=== PATIENT | male | born 1960 | race Caucasian/White ===

== ENCOUNTER 2018-01-07 10:02 | Emergency (ER) | payer OTHER ==
--- NOTE | 2018-01-07 10:18 | PDOC ---
History of Present Illness - General Chief Complaint: Lightheaded Stated Complaint: WEAKNESS Time Seen by Provider: 01/07/18 10:17 - History of Present Illness Initial Comments: 01/07/18 10:38 The patient is a 57 year old male with a history of HTN, HLD who presents for evaluation of lightheadedness, headache, and generalized weakness. The patient reports a history of headaches during intercourse with certain positions. He states that recently, his headaches have been persisting and lasting up to 1 week at a time. He is currently being worked up by Dr. Hirsch his neurologist and has an MRI scheduled in 4 days. He states that he was placed on a medication for migraines by Dr. Hirsch 1 week ago, and since then has been experiencing continued headaches and worsening lightheadedness and generalized weakness prompting his presentation to the ED for evaluation. He otherwise denies fevers, chills, SOB, chest pain, abdominal pain, nausea, vomiting, numbness, weakness, or changes with urination or bowel movements. Past History - Past Medical History Allergies/Adverse Reactions: Allergies Allergy/AdvReac Type Severity Reaction Status Date / Time No Known Allergies Allergy Verified 01/07/18 10:14 Home Medications: Ambulatory Orders Atorvastatin Ca [Lipitor] 20 mg PO DAILY 03/17/17 Losartan Potassium 25 mg PO DAILY 03/17/17 Topiramate [Topamax] 50 mg PO DAILY 01/07/18 Zolpidem Tartrate [Ambien] 10 mg PO HS 01/07/18 HTN: Yes Hypercholesterolemia: Yes - Suicide/Smoking/Psychosocial Hx Smoking History: Never smoked Hx Alcohol Use: Yes (SOCIAL) Drug/Substance Use Hx: No Substance Use Type: None Review of Systems - Review of Systems Comments:: 01/07/18 10:43 Constitutional: Fatigue. No fevers, chills, malaise HEENT: No Rhinorrhea, nasal congestion, visual changes Cardiovascular: Lightheadedness. No chest pain, syncope, palpitations, Respiratory: No Cough, SOB, Hemoptysis, Gastrointestinal: No Abdominal pain, Nausea, Vomiting, Constipation, Diarrhea, Melena Genitourinary: No Dysuria, Frequency, Urgency, Hesitancy, Hematuria, Flank pain Musculoskeletal: No Myalgia, arthralgia Skin: No rashes, itching, bruising, pallor Neurologic: Headache. No Dizziness, Numbness, Weakness, or Tingling Psychiatric: No Hallucinations. No SI or HI *Physical Exam - Physical Exam Comments: 01/07/18 10:45 General Appearance: Nourished. No Apparent Distress HEENT: EOMI, SOFIE. No Pharyngeal Erythema, Tonsillar Exudate, Tonsillar Erythema Neck: No Cervical Lymphadenopathy Respiratory/Chest: Lungs Clear, Normal Breath Sounds. No Crackles, Rales, Rhonchi, Wheezing Cardiovascular: Regular Rhythm, Regular Rate. No Murmur, Gallops, Rubs Gastrointestinal/Abdominal: Normal Bowel Sounds, Soft. No Guarding, Rebound, Tenderness Musculoskeletal: No CVA Tenderness Extremity: Normal Capillary Refill Integumentary: Normal Color, Dry, Warm Neurologic: dairy farmworker II-XII NML intact, Fully Oriented, Alert, Normal Mood/Affect, Normal Response, Motor Strength 5/5. Normal Finger to Nose and Heel to Kay ED Treatment Course - LABORATORY CBC & Chemistry Diagram: 01/07/18 10:50 01/07/18 10:50 Medical Decision Making - Medical Decision Making 01/07/18 10:45 The patient is a 57 year old male with a history of HTN, HLD who presents for evaluation of lightheadedness, headache, and generalized weakness. Differential includes but is not limited to: ACS, Dehydration, Intracranial process, Arrhythmia, infectious, metabolic derangement. Given the patient's history we will obtain a cbc, cmp, troponin, head ct, ekg to evaluate further for any serious etiologies. We will treat with iv fluids here in the ED and continue to monitor and reassess. 01/07/18 13:12 CBC, cmp, troponin were unremarkable. Head CT was unremarkable as read by our radiologist. We discussed the case with Dr. Hirsch who has been made aware of the case and requests that the patient stop his new medication and follow up in the office after his MRI in 4 days. We are comfortable discharging the patient home at this time with neurology follow up. We discussed the results, plan, and strict return precautions with the patient who voiced understanding and is agreeable with the plan. *DC/Admit/Observation/Transfer Diagnosis at time of Disposition: Headache Qualifiers: Headache type: unspecified Headache chronicity pattern: unspecified pattern Intractability: not intractable Qualified Code(s): R51 - Headache - Discharge Dispostion Disposition: HOME Condition at time of disposition: Good Admit: No - Referrals Referrals: Frances Love MD [Primary Care Provider] - Usama Finn MD [Staff Physician] - - Patient Instructions Printed Discharge Instructions: DI for Headache Additional Instructions: Please return to the ER if you experience concerning or worsening symptoms including worsening headache, weakness in your arms or legs, vomiting, or numbness. Your lab results and CT scan were normal here in the ER. Please stop taking the medication that was prescribed to you by Dr. Finn per his request. Please keep your MRI appointment on . Please call to schedule a follow up appointment with Dr. Finn your Neurologist within 2-3 days to discuss your ER visit and further management of your symptoms. - Post Discharge Activity
[2018-01-07 10:19] VITALS: BMI 24.3
[2018-01-07] MEDS ORDERED: SODIUM CHLORIDE 1,000 ML IV STA (10:34)
[2018-01-07 10:56] LABS: BASO % 0.7 % (0-2.0); EOS % 4.7 % (0-4.5); HEMATOCRIT 44.1 % (35.4-49); HEMOGLOBIN 15.2 GM/dL (11.7-16.9); MCH 29.7 pg (25.7-33.7); MCHC 34.4 g/dl (32.0-35.9); MEAN CELL VOLUME 86.4 fl (80-96); MEAN PLT VOLUME 8.2 fl (7.5-11.1); MONO % 8.8 % (3.8-10.2); NEUT % 56.8 % (42.8-82.8); PLATELET COUNT 276 K/MM3 (134-434); RDW 13.6 % (11.9-15.9); WHITE BLOOD COUNT 6.6 K/mm3 (4.0-10.0)
[2018-01-07 11:20] LABS: ALBUMIN 4.2 g/dl (3.4-5.0); ANION GAP 8 (8-16); BILIRUBIN,TOTAL 0.6 mg/dL (0.2-1.0); BLOOD UREA NITROGEN 22 mg/dL (7-18); CALCIUM 8.7 mg/dL (8.5-10.1); CHLORIDE 109 mmol/L (98-107); CO2 24 mmol/L (21-32); GLUCOSE,RANDOM 89 mg/dL (74-106); POTASSIUM 4.5 mmol/L (3.5-5.1); SGOT/AST 24 U/L (15-37); SGPT/ALT 34 U/L (12-78); SODIUM 141 mmol/L (136-145); TOT PROT 6.9 g/dl (6.4-8.2)
[2018-01-07 11:22] LABS: ALK PHOS 105 U/L (45-117)
[2018-01-07] MEDS ORDERED: ACETAMINOPHEN 1000 MG/100 ML VIAL (NON FORMULARY) IVPB ONE (11:59)
[2018-01-07] MEDS ORDERED: METOCLOPRAMIDE HCL INJECTION 10 MG/2 ML VIAL IVPUSH ONE (11:59)
--- NOTE | 2018-01-07 12:14 | PDOC ---
Attending Attestation - Resident Resident Name: David Driscoll - HPI HPI: 01/07/18 12:14 Mr Lewis is a 57 yo M with a history of HTN, HLD who presents for evaluation of lightheadedness, headache, and generalized weakness. The patient has been seen by Neurology - Dr Finn Was started on some medication on sunday which he states did not help but rather worsened his headache He has noticed that his headaches have been persistent and lasting for several days at at time He notes headaches during intercourse with certain positions. MRI scheduled for 3 days from now. while in [employer] today, he noted that he felt lightheaded He denies chest pain, he denies palpitations No syncope - Physicial Exam PE: 01/07/18 12:18 On examination: RRR CTA B/L No abd tenderness No focal weakness or numbness The patient is awake, alert, oriented x3. Gross motor and sensory exam is found to be intact. Sensation of distal lower extremities intact. 5/5 muscle strength of the lower extremities. DTRs, Achilles, patellar 1-2+ and equal bilaterally. - Medical Decision Making 01/07/18 12:19 57 yo m presenting to the ER with a complaint of headache, lightheadedness, pre syncope no fevers or chills Symptoms seem to be chronic and intermittently worsening unlikely to be related to SAH or sentinel bleed unlikely to be related to meningitis (no fevers, no nuchal rigiditiy) unlikely to be related to mass will do CT any how Will re assess CT not acute Call placed to Neuro Pt can follow up with Dr Finn in the office MRI in 2 days Hold medication already prescribed (eval for symptom improvement) Clinical Impression: headache, initial presentation
[2018-01-07] MEDS ORDERED: METOCLOPRAMIDE HCL INJECTION 10 MG/2 ML VIAL ONE (12:27)
[2018-01-07] MEDS ORDERED: ACETAMINOPHEN INJECTION 100 ML IVPB ONE (12:28)
[2018-01-07 13:43] VITALS: BP 101/58; PULSE 60; TEMP 97.5
--- NOTE | 2018-01-07 15:08 | EKG ---
Test Reason : Blood Pressure : / mmHG Vent. Rate : 057 BPM Atrial Rate : 057 BPM P-R Int : 170 ms QRS Dur : 092 ms QT Int : 400 ms P-R-T Axes : 069 038 027 degrees QTc Int : 389 ms SINUS BRADYCARDIA EARLY REPOLARIZATION OTHERWISE NORMAL ECG WHEN COMPARED WITH ECG OF 02-APR-2005 00:08, NO SIGNIFICANT CHANGE WAS FOUND Confirmed by SABAS GREEN MD ([id number]) on 01/07/2018 3:08:12 PM Referred By: Confirmed By:SABAS GREEN MD
== END 2018-01-07 13:52 | disposition home or self-care (01) ==
LOC: JER 10:02
PROC: 3E0337Z Introduction of Electrolytic and Water Balance Substance into Peripheral Vein, Percutaneous Approach (ICD-10-PCS; principal; 2018-01-07)
PROC: 3E033NZ Introduction of Analgesics, Hypnotics, Sedatives into Peripheral Vein, Percutaneous Approach (ICD-10-PCS; 2018-01-07)
PROC: 3E033GC Introduction of Other Therapeutic Substance into Peripheral Vein, Percutaneous Approach (ICD-10-PCS; 2018-01-07)
DX: R51 Headache (principal); I10 Essential (primary) hypertension; E78.00 Pure hypercholesterolemia, unspecified
CPT/HCPCS: 36415; 70450-TC; 80053; 82550; 82553; 84443; 84484; 85025; 93005; 93010; 96361; 96374; 96375; 99283-25; J0131; J7030

== ENCOUNTER 2018-11-10 19:43 | Emergency (ER) | payer OTHER ==
[2018-11-10 19:46] VITALS: BMI 25.0
--- NOTE | 2018-11-10 19:47 | PDOC ---
History of Present Illness - General Chief Complaint: Weakness Stated Complaint: WEAKNESS Time Seen by Provider: 11/10/18 19:46 History Source: Patient Exam Limitations: No Limitations - History of Present Illness Initial Comments: 11/10/18 20:08 58 year old male with PMH HTN, HLD on statin, neck mass presented to ED for generalized weakness, cough and headache starting today. Pt stated he forgot to take his Losartan 25 mg today, developed a headache, took his blood pressure which was 210/100, took his medication, then rechecked his blood pressure which was 190/94. He stated he usually cannot have sexual intercourse with him on top of his because it aggravates his neck pain from his neck mass, and that a couple of days ago he had sexual intercourse with his on top, which exacerbated his neck pain or sore throat. He also complained of a week of palpitations last week, which has resolved. He stated he started coughing today , and couple up a couple drops of blood. He also complained of body aches. He denied chest pain, shortness of breath, abdominal pain, nausea, vomiting, diarrhea, lower extremity swelling, dysuria. Allergies: NKDA Past History - Past Medical History Allergies/Adverse Reactions: Allergies Allergy/AdvReac Type Severity Reaction Status Date / Time No Known Allergies Allergy Verified 11/10/18 19:46 Home Medications: Ambulatory Orders Atorvastatin Ca [Lipitor] 20 mg PO DAILY 03/17/17 Losartan Potassium 25 mg PO DAILY 03/17/17 COPD: No HTN: Yes Hypercholesterolemia: Yes - Suicide/Smoking/Psychosocial Hx Smoking History: Never smoked Have you smoked in the past 12 months: No Hx Alcohol Use: Yes (SOCIAL) Drug/Substance Use Hx: No Substance Use Type: None Review of Systems - Review of Systems Able to Perform ROS?: Yes Comments:: 11/10/18 20:12 General: admitted to chills, generalized weakness. HEENT: admitted to sore throat. denied rhinorrhea, ear pain. Heart: admitted to palpitations. denied chest pain, syncope, diaphoresis. Respiratory: admitted to cough, hemoptysis. denied shortness of breath, sputum production. Abdomen: denied abdominal pain, nausea, vomiting, diarrhea, constipation, blood in stool. : denied dysuria, increased urinary frequency, hematuria, urinary incontinence , flank pain. Back: denied back pain. Musculoskeletal: admitted to body aches. denied joint pain, joint swelling. Neurological: admitted to headache. denied dizziness, numbness, tingling, weakness. Skin: denied rash, laceration, abrasion. *Physical Exam - Vital Signs Last Vital Signs Temp Pulse Resp BP Pulse Ox 98.1 F 71 18 158/90 100 11/10/18 19:44 11/10/18 19:44 11/10/18 19:44 11/10/18 19:44 11/10/18 19:44 - Physical Exam Comments: 11/10/18 20:14 Constitutional: Well-nourished, Well-developed, appearing stated age. HEENT: head is normocephalic, atraumatic. EOMI. PERRLA. TM no erythema or bulging bilaterally. posterior pharynx no erythema. no tonsillar swelling, no tonsillar exudates bilaterally. Neck: supple. Full ROM. tenderness to palpation of right paraspinal c-spine area. Heart: regular rhythm. no murmurs, rubs or gallops. Lungs: clear to auscultation bilaterally. no crackles, rhonchi or wheezing. no stridor. Abdomen: soft, nontender. normal bowel sounds. no rebound, guarding, masses. Extremities: Peripheral pulses intact. No lower extremity edema. Neurological: CN 2-12 grossly intact. Moves all four extremities. Psych: awake, alert, oriented x3. Follows commands. Answers questions appropriately. Moderate Sedation - Procedure Monitoring Vital Signs: Procedure Monitoring Vital Signs Temperature 98.1 F 11/10/18 19:44 Pulse Rate 71 11/10/18 19:44 Respiratory Rate 18 11/10/18 19:44 Blood Pressure 158/90 11/10/18 19:44 O2 Sat by Pulse Oximetry (%) 100 11/10/18 19:44 Heart Score/ECG Review - History History: Slightly suspicious - Electrocardiogram EKG: Non specific repolarization disturbance - Age Age: 45-65 - Risk Factors Risk Factors Heart Score: Yes Hx Hypercholesterolemia, Yes Hx Hypertension Based on the list above the patient has:: 1-2 risk factors - Troponin Troponin: </= normal limit - Score Heart Score - Total: 3 ED Treatment Course - LABORATORY CBC & Chemistry Diagram: 11/10/18 20:02 11/10/18 20:02 Medical Decision Making - Medical Decision Making 11/10/18 20:15 58 year old male with above PMH presented to ED for multiple complaints as above. Initial Vital Signs Temp Pulse Resp BP Pulse Ox 98.1 F 71 18 158/90 100 11/10/18 19:44 11/10/18 19:44 11/10/18 19:44 11/10/18 19:44 11/10/18 19:44 Afebrile. No tachycardia. No tachypnea. Mild hypertension. No hypoxia on room air. Labs ordered: CBC, CMP, troponin, UA/UC, influenza testing Imaging ordered: CXR Medications ordered: normal saline bolus 1000 cc, toradol 30 mg IV EKG performed at 11/10/18: rate 68, regular rhythm, normal axis, normal intervals, early repolarization, 1 PVC. early repolarization similar to prior . - Pt informed of PVC and need to follow up with PCP 11/10/18 20:27 CBC WBC 10.1 K/mm3 (4.0-10.0) H 11/10/18 20:02 RBC 4.93 M/mm3 (4.00-5.60) 11/10/18 20:02 Hgb 15.0 GM/dL (11.7-16.9) 11/10/18 20:02 Hct 42.4 % (35.4-49) 11/10/18 20:02 MCV 85.9 fl (80-96) 11/10/18 20:02 MCH 30.5 pg (25.7-33.7) 11/10/18 20:02 MCHC 35.5 g/dl (32.0-35.9) 11/10/18 20:02 RDW 12.9 % (11.9-15.9) 11/10/18 20:02 Plt Count 278 K/MM3 (134-434) 11/10/18 20:02 MPV 7.9 fl (7.5-11.1) 11/10/18 20:02 Absolute Neuts (auto) 6.6 K/mm3 (1.5-8.0) 11/10/18 20:02 Neutrophils % 65.1 % (42.8-82.8) 11/10/18 20:02 Lymphocytes % 21.9 % (8-40) D 11/10/18 20:02 Monocytes % 8.5 % (3.8-10.2) 11/10/18 20:02 Eosinophils % 3.4 % (0-4.5) 11/10/18 20:02 Basophils % 1.1 % (0-2.0) 11/10/18 20:02 Nucleated RBC % 0 % (0-0) 11/10/18 20:02 No leukocytosis. No left shift. No anemia. 11/10/18 20:34 Influenza A&B testing negative. 11/10/18 20:38 CMP Sodium 140 mmol/L (136-145) 11/10/18 20:02 Potassium 3.9 mmol/L (3.5-5.1) 11/10/18 20:02 Chloride 106 mmol/L (98-107) 11/10/18 20:02 Carbon Dioxide 24 mmol/L (21-32) 11/10/18 20:02 Anion Gap 9 MMOL/L (8-16) 11/10/18 20:02 BUN 19 mg/dL (7-18) H 11/10/18 20:02 Creatinine 0.8 mg/dL (0.55-1.3) 11/10/18 20:02 Creat Clearance w eGFR > 60 (>60) 11/10/18 20:02 Random Glucose 91 mg/dL (74-106) 11/10/18 20:02 Calcium 7.9 mg/dL (8.5-10.1) L 11/10/18 20:02 Total Bilirubin 0.4 mg/dL (0.2-1) 11/10/18 20:02 AST 20 U/L (15-37) 11/10/18 20:02 ALT 39 U/L (13-61) 11/10/18 20:02 Alkaline Phosphatase 110 U/L (45-117) 11/10/18 20:02 Troponin I < 0.02 ng/ml (0.00-0.05) 11/10/18 20:02 B-Natriuretic Peptide 23.6 pg/ml (5-125) 11/10/18 20:02 Total Protein 6.4 g/dl (6.4-8.2) 11/10/18 20:02 Albumin 3.9 g/dl (3.4-5.0) 11/10/18 20:02 No electrolyte abnormalities. No ANITA. No transaminitis. Normal troponin. Normal BNP. Urine Test Results Urine Color Straw 11/10/18 20:18 Urine Appearance Clear 11/10/18 20:18 Urine pH 6.0 (5.0-8.0) 11/10/18 20:18 Ur Specific [place] 1.011 (1.010-1.035) 11/10/18 20:18 Urine Protein Negative (NEGATIVE) 11/10/18 20:18 Urine Glucose (UA) Negative (NEGATIVE) 11/10/18 20:18 Urine Ketones Negative (NEGATIVE) 11/10/18 20:18 Urine Blood Negative (NEGATIVE) 11/10/18 20:18 Urine Nitrite Negative (NEGATIVE) 11/10/18 20:18 Urine Bilirubin Negative (<2.0 mg/dL) 11/10/18 20:18 Ur Leukocyte Esterase Negative (NEGATIVE) 11/10/18 20:18 No blood in urine. No evidence of UTI. 11/10/18 20:50 CXR my interpretation: sharp costophrenic angles. no infiltrate. no cardiomegaly. no pulmonary vascular congestion. - Pending official report 11/10/18 21:25 CT Head report: no intracranial hemorrhages, no intracranial mass, no evidence of acute or chronic ischemic lesion at this time. Pt informed of results and given copy of CT head report and EKG. Pt informed to follow up with PCP. Pt given pamphlet for [facility] clinic. Pt stated he may change his PCP to the clinic system. Pt discharged. *DC/Admit/Observation/Transfer Diagnosis at time of Disposition: Generalized weakness, Body aches - Discharge Dispostion Condition at time of disposition: Stable Decision to Admit order: No - Referrals - Patient Instructions Printed Discharge Instructions: DI for High Blood Pressure, How to Monitor Your Blood Pressure at Home Additional Instructions: Your lab work was normal. Your chest X-ray was normal. Your Cat-Scan of your head was normal. Take all your medication as prescribed. Take ibuprofen over the counter for your pain. Take as advised on label. Drink lots of water to stay hydrated. Follow up with your primary care doctor in 1-2 days. Bring all paperwork given to you today as well as all your medicine bottles to your appointment. Return to the Emergency Department for increasing pain, weakness of your arms or legs, facial drooping, numbness, tingling, chest pain, shortness of breath, vomiting, lightheadedness like you may pass out, palpitations or any other new, worsening or concerning symptoms. - Post Discharge Activity Forms/Work/School Notes: Back to Work
[2018-11-10] MEDS ORDERED: SODIUM CHLORIDE 1,000 ML IV STA (19:50)
[2018-11-10] MEDS ORDERED: KETOROLAC TROMETHAMINE 30 MG/1 ML VIAL IVPUSH ONE (20:07)
[2018-11-10 20:12] LABS: BASO % 1.1 % (0-2.0); EOS % 3.4 % (0-4.5); HEMATOCRIT 42.4 % (35.4-49); LYMPH % 21.9 % (8-40); MCH 30.5 pg (25.7-33.7); MCHC 35.5 g/dl (32.0-35.9); MEAN CELL VOLUME 85.9 fl (80-96); MEAN PLT VOLUME 7.9 fl (7.5-11.1); MONO % 8.5 % (3.8-10.2); NEUT % 65.1 % (42.8-82.8); PLATELET COUNT 278 K/MM3 (134-434); RBC 4.93 M/mm3 (4.00-5.60); RDW 12.9 % (11.9-15.9); WHITE BLOOD COUNT 10.1 K/mm3 (4.0-10.0)
[2018-11-10] MEDS ORDERED: KETOROLAC TROMETHAMINE 30 MG/1 ML VIAL ONE (20:13)
[2018-11-10 20:32] LABS: URINE APPEARANCE CLEAR; URINE BILIRUBIN NEGATIVE (<2.0 mg/dL); URINE COLOR STRAW; URINE GLUCOSE (UA) NEGATIVE (NEGATIVE); URINE KETONE NEGATIVE (NEGATIVE); URINE LEUK ESTERASE NEGATIVE (NEGATIVE); URINE NITRITE NEGATIVE (NEGATIVE); URINE PROTEIN NEGATIVE (NEGATIVE); URINE UROBILINOGEN NEGATIVE mg/dL (0.2-1.0)
[2018-11-10 20:36] LABS: ALBUMIN 3.9 g/dl (3.4-5.0); ALK PHOS 110 U/L (45-117); ANION GAP 9 MMOL/L (8-16); BILIRUBIN,TOTAL 0.4 mg/dL (0.2-1); BLOOD UREA NITROGEN 19 mg/dL (7-18); CALCIUM 7.9 mg/dL (8.5-10.1); CHLORIDE 106 mmol/L (98-107); CO2 24 mmol/L (21-32); CREATININE 0.8 mg/dL (0.55-1.3); GLUCOSE,RANDOM 91 mg/dL (74-106); N-TERMINAL BNP 23.6 pg/ml (5-125); POTASSIUM 3.9 mmol/L (3.5-5.1); SGOT/AST 20 U/L (15-37); SGPT/ALT 39 U/L (13-61); SODIUM 140 mmol/L (136-145); TOT PROT 6.4 g/dl (6.4-8.2)
--- NOTE | 2018-11-10 20:42 | PDOC ---
Attending Attestation - HPI HPI: 11/10/18 21:18 The patient is a 58 year old male, with a significant past medical history of HTN, HLD, a neck mass theyve had for years, who presents to the emergency department today complaining of generalized weakness, cough and a headache, onset 1 day. Patient reports that he did not take his losartan prescription this morning and since he has had these symptoms. This prompted him to take his BP 210/100, then took his losartan and then took his BP again 190/94. Patient also notes chronic neck pain that is exacerbated by sexual intercourse and palpitations for the last week the have gone away. The patient denies chest pain, shortness of breath, headache and dizziness. Denies fever, chills, nausea, vomit, diarrhea and constipation. Denies dysuria, frequency, urgency and hematuria. Allergies: NKA Social history: None reported <Blanca Clarke - Last Filed: 11/10/18 21:18> - Resident Resident Name: Vesna Domínguez - ED Attending Attestation I have performed the following: I have examined & evaluated the patient, The case was reviewed & discussed with the resident, I agree w/resident's findings & plan, Exceptions are as noted - HPI HPI: 11/10/18 20:41 58 yo male p/w concern for increasingly frequent headaches ands he reports palpitations last week - Physicial Exam PE: 11/10/18 21:06 wnwd 58 yo male presents in no acute distress head ncat eyes dianne eomi neck no jvd, no bruits lungs cta b/l cvs [id number] abd nontender, no guarding ext no edema,no cyanosis skin warm and dry neuro axox3, chronic rt foot drop, good hand grasp <Marisabel Huff - Last Filed: 11/10/18 21:56> Attestations - Attestations 11/10/18 21:18 Documentation prepared by Blanca Clarke, acting as medical service representative for Marisabel Huff MD. <Blanca Clarke - Last Filed: 11/10/18 21:18>
[2018-11-10 22:07] VITALS: BP 124/82; PULSE 65; TEMP 98.7
--- NOTE | 2018-11-11 09:42 | EKG ---
Test Reason : Blood Pressure : / mmHG Vent. Rate : 068 BPM Atrial Rate : 068 BPM P-R Int : 178 ms QRS Dur : 088 ms QT Int : 388 ms P-R-T Axes : 063 033 026 degrees QTc Int : 412 ms SINUS RHYTHM WITH OCCASIONAL PREMATURE VENTRICULAR COMPLEXES ST ELEVATION, CONSIDER EARLY REPOLARIZATION BORDERLINE ECG WHEN COMPARED WITH ECG OF 07-JAN-2018 10:55, PREMATURE VENTRICULAR COMPLEXES ARE NOW PRESENT Confirmed by PETER BRAVO, SABAS ([id number]) on 11/11/2018 9:42:14 AM Referred By: Confirmed By:SABAS GREEN MD
== END 2018-11-10 22:07 | disposition home or self-care (01) ==
LOC: JER 19:43
PROC: 3E0337Z Introduction of Electrolytic and Water Balance Substance into Peripheral Vein, Percutaneous Approach (ICD-10-PCS; principal; 2018-11-10)
PROC: 3E0333Z Introduction of Anti-inflammatory into Peripheral Vein, Percutaneous Approach (ICD-10-PCS; 2018-11-10)
DX: R53.1 Weakness (principal); I10 Essential (primary) hypertension; E78.00 Pure hypercholesterolemia, unspecified
CPT/HCPCS: 36415; 70450-TC; 71045-TC-FY; 80053; 81003; 83880; 84484; 85025; 87086; 87804; 93005; 93010; 96361; 96374; 99283-25; J7030

== ENCOUNTER 2021-05-12 17:51 | Emergency (ER) | payer OTHER ==
[2021-05-12 18:15] VITALS: BP 160/91; PULSE 78; TEMP 99; BMI 25.0
[2021-05-12] MEDS ORDERED: DEXAMETHASONE LIQUID 0.5 MG/5 ML PO ONE (18:33)
[2021-05-12] MEDS ORDERED: KETOROLAC TROMETHAMINE 60 MG/2 ML VIAL IVPUSH ONE (18:33)
[2021-05-12] MEDS ORDERED: KETOROLAC TROMETHAMINE 15 MG/ML VIAL ONE (18:42)
[2021-05-12] MEDS ORDERED: DEXAMETHASONE SOD PHOSPHATE 10 MG/1 ML VIAL ONE (18:42)
[2021-05-12 19:21] LABS: BASO % 0.5 % (0-2.0); EOS % 1.7 % (0-4.5); HEMATOCRIT 40.2 % (35.4-49); HEMOGLOBIN 13.9 GM/dL (11.7-16.9); MCH 29.6 pg (25.7-33.7); MCHC 34.5 g/dl (32.0-35.9); MEAN CELL VOLUME 85.8 fl (80-96); MEAN PLT VOLUME 8.3 fl (7.5-11.1); NEUT % 70.8 % (42.8-82.8); PLATELET COUNT 259 10^3/uL (134-434); RBC 4.68 M/mm3 (4.00-5.60); RDW 13.5 % (11.9-15.9); WHITE BLOOD COUNT 13.8 K/mm3 (4.0-10.0)
[2021-05-12 19:48] LABS: ALBUMIN 3.9 g/dl (3.4-5.0); CALCIUM 8.7 mg/dL (8.5-10.1)
[2021-05-12 19:52] LABS: CREATININE 0.8 mg/dL (0.55-1.3)
[2021-05-12 19:54] LABS: BILIRUBIN,TOTAL 0.8 mg/dL (0.2-1)
[2021-05-12] MEDS ORDERED: CLINDAMYCIN 600MG PREMIX IVPB 600 MG/50 ML BAG IVPB ONE ×2 (22:41→23:17)
== END 2021-05-13 00:11 | disposition home or self-care (01) ==
LOC: JER 17:51 → JERFT 17:51 → JER 05-13 00:11
PROC: 3E03329 Introduction of Other Anti-infective into Peripheral Vein, Percutaneous Approach (ICD-10-PCS; principal; 2021-05-12)
PROC: 3E0333Z Introduction of Anti-inflammatory into Peripheral Vein, Percutaneous Approach (ICD-10-PCS; 2021-05-12)
DX: K04.7 Periapical abscess without sinus (principal)
CPT/HCPCS: 36415; 70491-TC; 80053; 85025; 87880; 96365; 96375; 99284-25; C9803; U0003; U0005

== ENCOUNTER 2023-12-25 19:17 | Emergency (ER) | payer OTHER ==
[2023-12-25 19:24] VITALS: BP 153/90; PULSE 75; RESP 20; TEMP 98.3; BMI 23.9
[2023-12-25] MEDS ORDERED: IBUPROFEN 600 MG TABLET (FP) PO ONE (21:21)
[2023-12-25] MEDS ORDERED: DIPHTH,PERTUSS(ACELL),TET 0.5 ML DISP.SYRIN IM ONE (21:21)
[2023-12-25] MEDS: DIPHTH,PERTUSS(ACELL),TET 0.5 ML DISP.SYRIN IM ONE (21:25)
[2023-12-25] MEDS: IBUPROFEN 600 MG TABLET (FP) PO ONE (21:25)
== END 2023-12-25 22:08 | disposition home or self-care (01) ==
LOC: JERFT 19:17 → JER 19:17 → JERFT 22:08
PROC: 0HQGXZZ Repair Left Hand Skin, External Approach (ICD-10-PCS; principal; 2023-12-25)
PROC: 3E0234Z Introduction of Serum, Toxoid and Vaccine into Muscle, Percutaneous Approach (ICD-10-PCS; 2023-12-25)
DX: S61.211A Laceration without foreign body of left index finger without damage to nail, initial encounter (principal); W26.0XXA Contact with knife, initial encounter; Y92.000 Kitchen of unspecified non-institutional (private) residence as the place of occurrence of the external cause
CPT/HCPCS: 12002-25; 90471; 90715; 99283-25